=== PATIENT | male | born 1985 | race Caucasian/White ===

== ENCOUNTER 2024-08-06 17:34 | Emergency (ER) | payer OTHER ==
[~2024-08-06] VITALS: Ht 180.3 cm; Wt 108.9 kg
[2024-08-06 18:05] VITALS: BP 166/100; TEMP 98.4
[2024-08-06 18:39] VITALS: O2SAT 100
== END 2024-08-06 18:40 | disposition home or self-care (01) ==
LOC: ER 18:21
DX: R04.0 Epistaxis (principal); R42 Dizziness and giddiness; I10 Essential (primary) hypertension; Z86.79 Personal history of other diseases of the circulatory system